=== PATIENT | female | born 1995 | race Caucasian/White ===

== ENCOUNTER 2020-08-13 21:46 | Emergency (ER) | payer OTHER ==
[~2020-08-13 21:46] MED LIST: BENADRYL25 MG PO; MEDROL 4MG DOSEP4 MG PO; NORCO 5-325 TA1 EACH PO; PEPCID AC20 MG PO; PREDNISONE 20MG20 MG PO; VISTARIL25 MG PO
== END 2020-08-13 22:35 | disposition home or self-care (01) ==
LOC: FER 21:46
DX: S61.411A Laceration without foreign body of right hand, initial encounter (principal); F17.210 Nicotine dependence, cigarettes, uncomplicated; W25.XXXA Contact with sharp glass, initial encounter; Y92.009 Unspecified place in unspecified non-institutional (private) residence as the place of occurrence of the external cause; Y93.G1 Activity, food preparation and clean up

== ENCOUNTER 2020-08-30 20:51 | Emergency (ER) | payer OTHER ==
[2020-08-30] MEDS ORDERED: PREDNISONE 20MG20 MG PO (22:17)
== END 2020-08-30 22:25 | disposition home or self-care (01) ==
LOC: FER 20:51
DX: T78.1XXA Other adverse food reactions, not elsewhere classified, initial encounter (principal); F17.200 Nicotine dependence, unspecified, uncomplicated
CPT/HCPCS: J1200; J2930

== ENCOUNTER 2020-10-20 15:45 | Emergency (ER) | payer OTHER ==
[2020-10-20 16:20] LABS: BILIRUBIN NEGATIVE (NEGATIVE); BLOOD NEGATIVE Ery/uL (NEGATIVE); CLARITY CLEAR (CLEAR); COLOR YELLOW (YELLOW); GLUCOSE (U) NORMAL (NORMAL); LEUKOCYTES NEGATIVE Leu/uL (NEGATIVE); NITRITE NEGATIVE (NEGATIVE); PROTEIN NEGATIVE (NEGATIVE); pH 6.5 (5.0-9.0)
[2020-10-20 16:46] LABS: BUN/CREAT RATIO (CALC) 23.6 RATIO; CREATININE 0.55 mg/dL (0.51-0.95); POTASSIUM 3.9 mmol/L (3.5-5.1)
[2020-10-20 16:48] LABS: BASOPHIL 0.5 % (0-2); EOSINOPHIL 4.7 % (0-5); HCT 38.5 % (37.0-47.0); HGB 12.9 g/dl (12.5-16.0); LYMPHOCYTE 27.6 % (15-48); MCH 32.3 pg (25.0-31.0); MCHC 33.5 g/dL (32.0-36.0); MCV 96.3 fL (78.0-100.0); MONOCYTE 7.9 % (0-12); MPV 9.9 fL (6.0-9.5); NEUTROPHIL 59.1 % (41-80); NRBC 0; PLT 289 K/uL (150-400); RDW 12.8 % (11.5-14.0); WBC 9.8 K/uL (4.0-10.5)
[2020-10-20] MEDS ORDERED: PRENATAL FORMU1 EACH PO (17:50)
== END 2020-10-20 17:59 | disposition home or self-care (01) ==
LOC: FER 15:45
PROVIDERS: Nurse Practitioner Family
DX: O21.9 Vomiting of pregnancy, unspecified (principal); Z87.891 Personal history of nicotine dependence; Z87.19 Personal history of other diseases of the digestive system; Z91.018 Allergy to other foods; Z91.040 Latex allergy status; Z3A.00 Weeks of gestation of pregnancy not specified
CPT/HCPCS: 36415; 80048; 81003; 84702; 85025; 99284

== ENCOUNTER 2020-10-24 11:12 | Emergency (ER) | payer OTHER ==
[~2020-10-24 11:12] MED LIST changes: +PRENATAL FORMU1 EACH PO
[2020-10-24 12:16] LABS: BASOPHIL 0.6 % (0-2); EOSINOPHIL 4.7 % (0-5); HGB 13.7 g/dl (12.5-16.0); LYMPHOCYTE 19.5 % (15-48); MCH 33.7 pg (25.0-31.0); MCHC 35.1 g/dL (32.0-36.0); MCV 96.1 fL (78.0-100.0); MONOCYTE 10.4 % (0-12); MPV 10.7 fL (6.0-9.5); NEUTROPHIL 64.7 % (41-80); NRBC 0; PLT 288 K/uL (150-400); RBC 4.06 M/uL (4.20-5.40); RDW 12.9 % (11.5-14.0)
[2020-10-24 12:28] LABS: ALBUMIN 3.6 g/dL (3.4-5.0); BILIRUBIN - TOTAL 0.4 mg/dL (0.2-1.0); BUN/CREAT RATIO (CALC) 13.3 RATIO; CREATININE 0.6 mg/dL (0.51-0.95); GLOBULIN (CALCULATION) 3.1 g/dL; POTASSIUM 3.4 mmol/L (3.5-5.1); TOTAL PROTEIN 6.7 g/dL (6.4-8.2)
== END 2020-10-24 15:44 | disposition home or self-care (01) ==
LOC: FER 11:12
PROVIDERS: Emergency Medicine
DX: O99.891 Other specified diseases and conditions complicating pregnancy (principal); R10.2 Pelvic and perineal pain; Z87.891 Personal history of nicotine dependence; Z3A.01 Less than 8 weeks gestation of pregnancy
CPT/HCPCS: 36415; 76817; 80053; 84702; 85025; 86900; 86901

== ENCOUNTER 2020-12-12 14:27 | Emergency (ER) | payer OTHER | END 2020-12-12 15:30 | disposition left against medical advice (07) | LOC: FER 14:27 | DX: S20.222A Contusion of left back wall of thorax, initial encounter (principal); Y04.2XXA Assault by strike against or bumped into by another person, initial encounter; Y92.009 Unspecified place in unspecified non-institutional (private) residence as the place of occurrence of the external cause; Y07.03 Male partner, perpetrator of maltreatment and neglect | CPT/HCPCS: 99283 ==